=== PATIENT | female | born 1975 | race Caucasian/White ===

== ENCOUNTER 2020-08-19 10:15 | Emergency (ER) | payer OTHER ==
[2020-08-19] MEDS ORDERED: MORPHINE SULFATE 10 MG/ML INJ IV ONE (10:39)
[2020-08-19] MEDS ORDERED: ONDANSETRON HCL INJ/PF 4 MG/2 ML SDV IV ONE (10:39)
[2020-08-19] MEDS ORDERED: NORMAL SALINE 1000 ML 1,000 ML IV ONE (10:40)
--- NOTE | 2020-08-19 10:43 | ER Document Report ---
ED Medical Screen (RME) - General Chief Complaint: Neck Problem Stated Complaint: NECK PAIN,SWELLING Time Seen by Provider: 08/19/20 10:31 TRAVEL OUTSIDE OF THE U.S. IN LAST 30 DAYS: No - HPI Notes: 08/19/20 10:40 44-year-old female presents to the emergency room for a mass to her right side of her neck that started 3 months ago the patient has not had checked out due to lack of insurance. Reports pain has become progressively worse, she now states it is painful to swallow and has a low-grade fever. Patient reports pain is constant, 5 out of 5. Has only tried Tylenol for pain management. Reports last menstrual cycle was 08/12/2020. Patient states she went to the [facility] but they would not see her without a primary care referral, she was told that she could be evaluated in the emergency room. Denies any nausea vomiting or diarrhea, difficulty speaking or breathing, chest pain, shortness of breath, numbness or tingling down arms or legs. Denies any dental pain than her usual, she states she does have "bad teeth" I have greeted and performed a rapid initial assessment of this patient. A comprehensive ED assessment and evaluation of the patient, analysis of test results and completion of the medical decision making process will be conducted by additional ED providers. PHYSICAL EXAMINATION: GENERAL: Well-appearing, well-nourished and in no acute distress. ENT: No right mastoid tenderness on palpation. bilateral TM out any erythema or induration, intact NECK: right neck mass that extends from postauricular to proximal collarbone, approx 11cm x 7 cm. No erythema or induration but slight tenderness to palpation. CV: s1, s2 regular LUNGS: No respiratory distress Musculoskeletal: Normal range of motion NEUROLOGICAL: Normal speech, normal gait. SKIN: Warm, Dry, normal turgor, no rashes or lesions noted. - Related Data Allergies/Adverse Reactions: No Known Allergies Allergy (Verified 08/19/20 10:31) Past Medical History - Past Medical History Cardiac Medical History: Reports: Hx Hypercholesterolemia GI Medical History: Reports: Hx Gastroesophageal Reflux Disease Past Surgical History: Reports: Hx Orthopedic Surgery - right knee - Immunizations Hx Diphtheria, Pertussis, Tetanus Vaccination: Yes Physical Exam - Vital signs Vitals: Temp Pulse Resp BP Pulse Ox 99.2 F 106 H 20 156/94 H 100 08/19/20 10:20 08/19/20 10:20 08/19/20 10:20 08/19/20 10:20 08/19/20 10:20 Course - Vital Signs Vital signs: Temp Pulse Resp BP Pulse Ox 99.2 F 106 H 20 156/94 H 100 08/19/20 10:20 08/19/20 10:20 08/19/20 10:20 08/19/20 10:20 08/19/20 10:20
--- NOTE | 2020-08-19 10:54 | ER Document Report ---
ED Neck/Back Problem - General Chief Complaint: Neck Problem Stated Complaint: NECK PAIN,SWELLING Time Seen by Provider: 08/19/20 10:31 Mode of Arrival: Ambulatory Information source: Patient, Relative - Notes: 08/19/20 10:32 - [id number] : 1975 Patient Age: 44 Pt ambulated to triage room without difficulty. Pt sitting up to chair, Resp even & unlabored. Pt able to speak in complete sentences. Pt reports swelling to right side of neck x 3 months. Pt reports increase difficulty in swallowing. Pt able to maintain airway without difficulty. SARA Hudson present for triage. ED Medical Screen (Tristan Pizarro) - General Chief Complaint: Neck Problem Stated Complaint: NECK PAIN,SWELLING Time Seen by Provider: 08/19/20 10:31 TRAVEL OUTSIDE OF THE U.S. IN LAST 30 DAYS: No - HPI Notes: 08/19/20 10:40 44-year-old female presents to the emergency room for a mass to her right side of her neck that started 3 months ago the patient has not had checked out due to lack of insurance. Reports pain has become progressively worse, she now states it is painful to swallow and has a low-grade fever. Patient reports pain is constant, 5 out of 5. Has only tried Tylenol for pain management. Reports last menstrual cycle was 08/12/2020. Patient states she went to the [facility] but they would not see her without a primary care referral, she was told that she could be evaluated in the emergency room. Denies any nausea vomiting or diarrhea, difficulty speaking or breathing, chest pain, shortness of breath, numbness or tingling down arms or legs. Denies any dental pain than her usual, she states she does have "bad teeth" MY NOTES 44-year-old female arrives with her with chief complaint of awakening in April of this year with pain and swelling to her right lateral neck she denied any trauma or fever chills cough or cold symptoms swallowing problems at that time. Around 1 month later it became painful and she presented herself [facility] She is to her exmilitary man . She works at [employer] in [place] and lately has been very busy because of the holiday schedules working nighttime shift third shift. She denies any family members with lymphoma mononucleosis cytomegalovirus. She reports she did have a boxer who a few years ago had to be put down because of lymphoma. She has 4 other dogs at home that are healthy one boxer 1 Uzbek cagle's to Phylicia. She denies any other family members with any other medical problems. Patient smokes one third of pack of cigarettes daily and denies any alcohol use. She does drink around 20 cans of Mountain Dew per day. She reports lately she has had problems when she chews when she yawns or turns her neck to the right or when she lays on her right neck during sleeping this induces pain in the solid feeling growth in her right lateral neck which is approximately 12 cm length by 12 cm width. TRAVEL OUTSIDE OF THE U.S. IN LAST 30 DAYS: No - HPI Patient complains to provider of: Pain, Neck Onset: Other - x 4-5 months Where: Home Onset: Gradual Timing: Constant, Worse Quality of pain: Achy Severity: Moderate Pain Level: 3 Associated symptoms: Radiation to chest Exacerbated by: Cough/deep breaths, Movement of neck, Sitting position Relieved by: Remaining still Similar symptoms previously: No Recently seen / treated by doctor: No - Related Data Allergies/Adverse Reactions: No Known Allergies Allergy (Verified 08/19/20 10:31) Past Medical History - General Information source: Patient, Relative - Social History Smoking Status: Current Every Day Smoker Cigarette use (# per day): Yes Chew tobacco use (# tins/day): No Smoking Education Provided: Yes Frequency of alcohol use: None Drug Abuse: None Lives with: Family Family History: Reviewed & Not Pertinent Patient has suicidal ideation: No Patient has homicidal ideation: No - Past Medical History Cardiac Medical History: Reports: Hx Hypercholesterolemia GI Medical History: Reports: Hx Gastroesophageal Reflux Disease Past Surgical History: Reports: Hx Orthopedic Surgery - right knee - Immunizations Hx Diphtheria, Pertussis, Tetanus Vaccination: Yes Review of Systems - Review of Systems Constitutional: See HPI, Recent illness EENT: No symptoms reported, Ear pain - Right-sided earache, Throat pain, Difficulty swallowing, Throat swelling Cardiovascular: No symptoms reported Respiratory: No symptoms reported Gastrointestinal: No symptoms reported Genitourinary: No symptoms reported Female Genitourinary: No symptoms reported Musculoskeletal: No symptoms reported Skin: No symptoms reported Hematologic/Lymphatic: No symptoms reported Neurological/Psychological: No symptoms reported -: Yes All other systems reviewed and negative Physical Exam - Vital signs Vitals: Temp Pulse Resp BP Pulse Ox 99.2 F 106 H 20 156/94 H 100 08/19/20 10:20 08/19/20 10:20 08/19/20 10:20 08/19/20 10:20 08/19/20 10:20 Interpretation: Normal - General General appearance: Appears well, Alert - HEENT Head: Normocephalic, Atraumatic Eyes: Normal Pupils: PERRL Nasal: Normal Mouth/Lips: Caries - Dental caries especially of upper teeth and lower molars., Dental fracture Pharynx: Normal Neck: Neck mass - Right lateral neck mass as per HPI with 12 cm length by 12 cm with very tender to palpation and firm to touch. - Respiratory Respiratory status: No respiratory distress Chest status: Nontender Breath sounds: Normal Chest palpation: Normal - Cardiovascular Rhythm: Regular Heart sounds: Normal auscultation Murmur: No - Abdominal Inspection: Normal Distension: No distension Bowel sounds: Normal Tenderness: Nontender Organomegaly: No organomegaly - Rectal Hemorrhoids: Other - Deferred - Genitourinary Bimanuel exam: Other - Deferred - Back Back: Normal, Nontender - Extremities General upper extremity: Normal inspection, Nontender, Normal color, Normal ROM, Normal temperature General lower extremity: Normal inspection, Nontender, Normal color, Normal ROM, Normal temperature, Normal weight bearing. No: Gabby's sign - Neurological Neuro grossly intact: Yes Cognition: Normal Orientation: AAOx4 Morrill Coma Scale Eye Opening: Spontaneous Morrill Coma Scale Verbal: Oriented Max Coma Scale Motor: Obeys Commands Morrill Coma Scale Total: 15 Speech: Normal Motor strength normal: LUE, RUE, LLE, RLE Sensory: Normal - Psychological Associated symptoms: Normal affect, Normal mood - Skin Skin Temperature: Warm Skin Moisture: Dry Skin Color: Normal Course - Vital Signs Vital signs: Temp Pulse Resp BP Pulse Ox 99.2 F 106 H 20 156/94 H 100 08/19/20 10:20 08/19/20 10:20 08/19/20 10:20 08/19/20 10:20 08/19/20 10:20 - Laboratory Result Diagrams: 08/19/20 10:40 08/19/20 10:40 Lab Results Review: Critical Lab Results Reviewed Laboratory results interpreted by me: 12/08/20 12/08/20 10:40 10:40 WBC 10.6 H RDW 14.5 H C-Reactive Protein 59.5 H - Diagnostic Test Radiology Studies Status: Radiology Image Reviewed, Radiology Report Reviewed - I evaluated both the image and the report as per radiology Critical Care Note - Critical Care Note Comments: I discussed this case with Dr. Orozco and also with Dr. Santy Carlson at 1430 and he advises following up in his office tomorrow at 930 I discussed this case with and patient and they appear to understand. For pain I advised Tylenol or [id number] Aleve or Motrin Naprosyn. Discharge - Discharge Clinical Impression: Right lateral neck mass Condition: Stable Disposition: HOME, SELF-CARE Additional Instructions: Follow-up with ENT tomorrow at [address] Santy Carlson at [address]. 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 Also you may follow-up with Dr. Orozco oncologist should ENT desire and you desire as well. Referrals: SANTY CARLSON MD [ACTIVE STAFF] - Follow up as needed
[2020-08-19 11:02] LABS: ABSOLUTE EOSINOPHILS # (AUTO) 0.1 10^3/uL (0.0-0.6); ABSOLUTE LYMPHOCYTES (AUTO) 2.2 10^3/uL (0.5-4.7); ABSOLUTE MONOCYTES (AUTO) 0.7 10^3/uL (0.1-1.4); ABSOLUTE NEUT (AUTO) 7.6 10^3/uL (1.7-8.2); BASOPHILS % (AUTO) 0.4 % (0-2); EOSINOPHILS % (AUTO) 0.5 % (0-6); LYMPHOCYTES % (AUTO) 20.8 % (13-45); MEAN CORPUSCULAR HEMOGLOBIN 31.9 pg (27.0-33.4); MEAN CORPUSCULAR HGB CONC 34.2 g/dL (32.0-36.0); MEAN CORPUSCULAR VOLUME 94 fl (80-97); PLATELET COUNT 396 10^3/uL (150-450); RED BLOOD COUNT 4.06 10^6/uL (3.72-5.28); RED CELL DISTRIBUTION WIDTH 14.5 % (11.5-14.0); SEGMENTED NEUTROPHILS % (AUTO) 71.3 % (42-78); TOTAL CELLS COUNTED % (AUTO) 100 %; WHITE BLOOD COUNT 10.6 10^3/uL (4.0-10.5)
--- NOTE | 2020-08-19 11:39 | RADIOLOGY REPORT (SQ) ---
EXAM DESCRIPTION: CHEST 2 VIEWS IMAGES COMPLETED DATE/TIME: 08/19/2020 11:24 am REASON FOR STUDY: R neck mass [id number], +pain, diff swallowing COMPARISON: None. EXAM PARAMETERS: NUMBER OF VIEWS: two views TECHNIQUE: Digital Frontal and Lateral radiographic views of the chest acquired. RADIATION DOSE: NA LIMITATIONS: none FINDINGS: LUNGS AND PLEURA: No opacities, masses or pneumothorax. No pleural effusion. MEDIASTINUM AND HILAR STRUCTURES: No masses or contour abnormalities. HEART AND VASCULAR STRUCTURES: Heart normal size. No evidence for failure. BONES: No acute findings. HARDWARE: None in the chest. OTHER: No other significant finding. IMPRESSION: NO ACUTE RADIOGRAPHIC FINDING IN THE CHEST. TECHNICAL DOCUMENTATION: JOB ID: [id number] 2010 [employer]- All Rights Reserved Reading location - IP/workstation name: [email or web address]
[2020-08-19 11:40] LABS: ALBUMIN 4.3 g/dL (3.5-5.0); ALKALINE PHOSPHATASE 92 U/L (38-126); ANION GAP 7 (5-19); ASPARTATE AMINO TRANSFERASE 20 U/L (14-36); BILIRUBIN,DIRECT 0.1 mg/dL (0.0-0.4); BILIRUBIN,TOTAL 0.5 mg/dL (0.2-1.3); BLOOD UREA NITROGEN 9 mg/dL (7-20); C-REACTIVE PROTEIN 59.5 mg/L (<10.0); CALCIUM 9.4 mg/dL (8.4-10.2); CARBON DIOXIDE 29 mmol/L (22-30); CHLORIDE 103 mmol/L (98-107); GLUCOSE 87 mg/dL (75-110)
--- NOTE | 2020-08-19 12:36 | RADIOLOGY REPORT (SQ) ---
EXAM DESCRIPTION: CT SOFT TISSUE NECK WITH IMAGES COMPLETED DATE/TIME: 08/19/2020 12:12 pm REASON FOR STUDY: R neck mass [id number], +pain, diff swallowing COMPARISON: None. TECHNIQUE: Post IV contrasted scanning from skull base through lung apices with review of bone, soft tissue and lung windows. Reconstructed coronal and sagittal MPR images reviewed. All images stored on PACS. All CT scanners at this facility use dose modulation, iterative reconstruction, and/or weight based d osing when appropriate to reduce radiation dose to as low as reasonably achievable (ALARA). [facility]: Dose Right [facility]: CareDose [facility]: Dose Right [facility]: Teradose 4D [facility]: [employer] CONTRAST TYPE AND DOSE: contrast/concentration: Isovue 350.00 mmol/ml; Total Contrast Delivered: 75. 0 ml; Total Saline Delivered: 37.8 ml RENAL FUNCTION: BUN 9 creatinine 0.61. RADIATION DOSE: CT Rad equipment meets quality standard of care and radiation dose reduction techniq ues were employed. CTDIvol: 17.1 mGy. DLP: 554 mGy-cm. . LIMITATIONS: None. FINDINGS: SOFT TISSUES: There is a soft tissue mass deep to the sternocleidomastoid muscle and post erior to the vascular bundle. Transverse measurements approximately 3.2 cm and overall length approx imately 5.5 cm. This appears to be predominantly cystic in nature with thin peripheral capsule. SKULL BASE: Intact. MAJOR SALIVARY GLANDS: No solid or cystic masses. No inflammatory changes. LYMPHADENOPATHY: No adenopathy. MUCOSAL MASSES OR ASYMMETRY: No mucosal masses or asymmetry. LARYNX/CORDS: No abnormal findings. VASCULAR STRUCTURES: The major vessels are patent. LUNG APICES: Clear. BONES: Intact. THYROID: Normal size. No masses. PARANASAL SINUSES: Clear. OTHER: No other significant finding. IMPRESSION: LARGE PREDOMINATELY CYSTIC MASS ON THE RIGHT SIDE DESCRIBED. 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 OTHER ETIOLOGIES SUCH ABSCESS OR CYSTIC DEGENERATION OF A NECROTIC LYMPH NODE W OULD PROBABLY BE LESS LIKELY. WOULD CONSIDER FOLLOW-UP WITH MRI FOR MORE COMPLETE EVALUATION. TECHNICAL DOCUMENTATION: JOB ID: [id number] Quality ID # [id number]: Final reports with documentation of one or more dose reduction techniques (e.g., Au tomated exposure control, adjustment of the mA and/or kV according to patient size, use of iterative reconstruction technique) 2010 [employer] All Rights Reserved Reading location - IP/workstation name: [email or web address]
[2020-08-19 15:18] VITALS: BP 148/90
== END 2020-08-19 15:21 | disposition home or self-care (01) ==
LOC: ER 10:15
DX: R22.1 Localized swelling, mass and lump, neck (principal); M54.2 Cervicalgia; R13.10 Dysphagia, unspecified; R50.9 Fever, unspecified; H92.01 Otalgia, right ear
CPT/HCPCS: 99285; 96361; 96374; 96375; 36415; 84702; 85025; 86140; 80053; 71046; 70491; J2270; J2405; J7030

== ENCOUNTER → 2020-08-26 | Day surgery (SDC) | payer BC, OTHER ==
--- NOTE | 2020-08-28 08:39 | RADIOLOGY REPORT (SQ) ---
EXAM DESCRIPTION: FNA BX W/ US GDN 1ST LES IMAGES COMPLETED DATE/TIME: 08/26/2020 11:13 am REASON FOR STUDY: R22.1 LOCALIZED SWELLING, MASS AND LUMP, NECK R22.1 LOCALIZED SWELLING, MASS AND LUMP, NECK COMPARISON: None. TECHNIQUE: The procedure was discussed with the patient and written informed consent obtained. A ti meout was performed to confirm the procedure and patient's identity. The skin of the neck was preppe d and draped in sterile fashion and 1% lidocaine administered for local anesthesia. Under sonographic guidance, 3 core biopsies of right neck mass we re obtained using a 20 gauge biopsy instrument. Hemostasis was obtained with direct manual compression. There were no immediate complications. LIMITATIONS: None. 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 IMPRESSION: ULTRASOUND-GUIDED BIOPSY PERFORMED OF A MASS IN THE RIGHT NECK SOFT TISSUES. COMMENT: Ordering provider was notified by pathology personnel on 08/27/2020 at 1321 hours. Patient medication list reviewed: Yes- Quality ID# [id number]:Eligible professional attests to documenting i n the medical record they obtained, updated, or reviewed the patient's current medications. TECHNICAL DOCUMENTATION: JOB ID: [id number] 2010 [employer]- All Rights Reserved Reading location - IP/workstation name: [email or web address]
== END ==
LOC: RAD 09:57
PROVIDERS: ATTEND Otolaryngology
DX: C96.9 Malignant neoplasm of lymphoid, hematopoietic and related tissue, unspecified (principal); L04.0 Acute lymphadenitis of face, head and neck; R22.1 Localized swelling, mass and lump, neck
CPT/HCPCS: 10005; 88305; 88342

== ENCOUNTER → 2020-09-09 | Outpatient (CLI) | payer BC ==
--- NOTE | 2020-09-10 09:19 | RADIOLOGY REPORT (SQ) ---
EXAM DESCRIPTION: PET CT SKULL/THIGH IMAGES COMPLETED DATE/TIME: 09/09/2020 1:35 pm REASON FOR STUDY: (C76.0)MALIGNANT NEOPLASM OF HEAD, FACE AND NECK C76.0 MALIGNANT NEOPLASM OF HEAD , FACE AND NECK COMPARISON: CT neck dated 08/19/2020 RADIONUCLIDE AND DOSE: 9.92 mCi F18 FDG The route of agent administration: Intravenous FASTING BLOOD SUGAR: 80 mg/dl CONTRAST TYPE AND DOSE: No CT contrast given. TECHNIQUE: Blood glucose level was verified. Above dose of FDG was injected intravenously. 2-D seg mented attenuation correction images were obtained from the base of the skull to the midthighs. Nonc ontrast CT images were obtained for attenuation correction and fusion with emission images. CT image s were performed without oral or intravenous contrast and are not sensitive for parenchymal lesions. A series of overlapping emission PET images were obtained. Images reviewed and manipulated at [facility] work station by the radiologist. Images stored on PACS. LIMITATIONS: None. FINDINGS: HEAD AND NECK: Abnormal uptake in the enlarged node just posterior to the mandible. SUV i s just under 19 consistent with neoplasm. There is peripheral uptake in the necrotic lymph node. Hi ghest SUV is approximately 4. Increased uptake involving the mandible at its apex is nonspecific and may be related to dental disease. CT images are limited through this area due to dental artifact. CHEST: No areas of abnormal metabolic activity in the chest. ABDOMEN AND PELVIS: No areas of abnormal metabolic activity in the abdomen or pelvis. Expected physi ologic activity is present in the genitourinary system and bowel. PROXIMAL LOWER EXTREMITIES: No areas of abnormal metabolic activity in the soft tissues of the lower extremities. BONES: No abnormal metabolic activity in the visualized skeleton. ADDITIONAL CT FINDINGS: No additional significant findings on the noncontrast CT images. OTHER: No other significant findings. IMPRESSION: Abnormal activity is confined to the right aspect of the neck as described. There is in creased uptake in the mandible at its apex this is nonspecific. Direct visualization is recommended. No distant metastasis. TECHNICAL DOCUMENTATION: JOB ID: [id number] Robert Applebaum MD- All Rights Reserved Reading location - IP/workstation name: [email or web address]
== END ==
LOC: RAD 08:41
PROVIDERS: ATTEND Otolaryngology
DX: C76.0 Malignant neoplasm of head, face and neck (principal)
CPT/HCPCS: 78815; A9552

== ENCOUNTER 2020-09-10 05:32 | Day surgery (SDC) | payer BC ==
[~2020-09-10 05:32] MED LIST: CEFAZOLIN 2 GM/D5W RTU 2 GM/50 ML RTUPB IV ONE; CEFAZOLIN 2 GM/D5W RTU 2 GM/50 ML RTUPB IV PRN
[2020-09-10] MEDS ORDERED: LIDOCAINE 2% INJ (20 MG/ML) 20 ML MDV ONE (06:46)
[2020-09-10] MEDS ORDERED: HYDROMORPHONE HCL INJ/PF 2 MG/ML AMPULE ONE (06:47)
[2020-09-10] MEDS ORDERED: DEXAMETHASONE SOD PHOSPHATE INJ 4 MG/1 ML VIAL ONE ×2 (06:48→09:23)
[2020-09-10] MEDS ORDERED: PROPOFOL INJ 200 MG/20 ML VIAL IV ONE (06:48)
[2020-09-10] MEDS ORDERED: FENTANYL CITRATE INJ/PF 100 MCG/2 ML AMPUL ONE (06:48)
[2020-09-10] MEDS ORDERED: MIDAZOLAM 2 MG/2 ML INJ ONE (06:48)
[2020-09-10] MEDS ORDERED: SCOPOLAMINE HYDROBROMIDE 1.5 MG PATCH.TD72 ONE (07:10)
[2020-09-10] MEDS ORDERED: PROMETHAZINE HCL INJ 25 MG/1 ML VIAL ONE (07:10)
[2020-09-10] MEDS ORDERED: EPINEPHRINE INJ/PF 1 MG/1 ML AMPULE ONE (07:11)
[2020-09-10] MEDS ORDERED: OXYMETAZOLINE HCL 0.05% NASAL SPRAY 15 ML BOTTLE ONE ×2 (07:11→07:34)
[2020-09-10] MEDS ORDERED: LIDOCAINE 1%/EPINEPHRINE INJ 20 ML VIAL ONE (07:12)
[2020-09-10] MEDS ORDERED: MINERAL OIL (STERILE) 10 ML VIAL ONE (07:12)
[2020-09-10] MEDS ORDERED: LIDOCAINE 2%/EPINEPHRINE INJ 1.7 ML CARTRIDGE ONE (07:15)
[2020-09-10] MEDS ORDERED: PROMETHAZINE HCL INJ 25 MG/1 ML VIAL IV PRN (07:55)
[2020-09-10] MEDS ORDERED: MEPERIDINE HCL/PF INJ 25 MG/1 ML DISP.SYRIN IV PRN (07:55)
[2020-09-10] MEDS ORDERED: DIPHENHYDRAMINE HCL 50 MG/ML VIAL IV PRN (07:55)
[2020-09-10] MEDS ORDERED: FENTANYL CITRATE INJ/PF 100 MCG/2 ML AMPUL IV PRN ×3 (07:55)
[2020-09-10] MEDS ORDERED: MORPHINE SULFATE 10 MG/ML INJ IV PRN (07:55)
[2020-09-10] MEDS ORDERED: ONDANSETRON HCL INJ/PF 4 MG/2 ML SDV IV PRN ×2 (07:55→09:58)
[2020-09-10] MEDS ORDERED: ONDANSETRON HCL INJ/PF 4 MG/2 ML SDV ONE (09:23)
--- NOTE | 2020-09-10 09:35 | Operative Report ---
[facility] Oper[facility] Report: Date: 10 September 2020 History: 45-year-old female with a right neck mass. FNA biopsy was consistent with a squamous cell carcinoma. Physical exam did not reveal an obvious primary site. PET/CT scan showed increased activity in the base of tongue bilateral. Patient presents today for a panendoscopy with directed biopsies and a tonsillectomy. Informed consent was obtained from the patient. Pre-operative diagnosis: 1. Metastatic squamous cell carcinoma right neck 2. Unknown primary of the head and neck. Post operative diagnosis: Same as above Procedure: 1. Micro direct laryngoscopy 2. Biopsy base of tongue, bilateral 3. Tonsillectomy 4. Rigid nasal endoscopy 5. Biopsy nasopharynx, right Surgeon: Jesus Carlson MD, FACS, [facility] Anesthesia: General via endotracheal intubation Procedure: After receiving informed consent from the patient, she was taken to the operating room and placed supine on the operating table. After successful induction intubation by anesthesia the patient was turned 90 degrees and head drape placed. The head was placed in a sniffing position. A mouth guard was placed over the upper dentition. The Suzi laryngoscope was inserted atraumatically into the laryngeal inlet and the laryngoscope was suspended. Under microscopic visualization the true vocal cords appeared normal without masses. The piriform fossa was visualized on both sides without evidence of a mass. The post cricoid area appeared normal without evidence of mass or lesions. The patient was then taken off suspension the Suzi laryngoscope was withdrawn to expose the base of tongue. A rigid endoscope was inserted through the laryngoscope and multiple biopsies were taken from the right and left side of the base of tongue. An obvious mass was not identified on either side. Hemostasis was obtained with Afrin saturated cottonoids. The laryngoscope was then taken out of suspension and the laryngoscope was withdrawn from the patient atraumatically. The cottonoids were removed. A shoulder roll was placed. A McIvor mouth gag was inserted atraumatically into the oral cavity and opened up. The soft palate was palpated and found to be normal. Red rubber catheters were inserted down each nasal cavity and brought out to elevate the soft palate. Attention was then directed to the tonsils. The right tonsil was grasped with tenaculum and retracted medially. Using Bovie electrocautery the right tonsil was dissected free from its tonsillar fossa . Hemostasis was obtained using suction Bovie electrocautery. A similar procedure was performed on the left side. Both tonsils were removed. The tonsils dissected easily from the tonsillar fossa. No evidence of an intratonsillar mass. The oral pharynx and the oral cavity were irrigated with copious amounts of normal saline, without evidence of bleeding. An orogastric tube was inserted i nto the stomach to aspirate gastric contents. The McIvor mouthgag was then released and reopened, the surgical bed was dry without evidence of bleeding. The McIvor mouth gag along with the red catheters were removed from the patient. The patient was then returned back to anesthesia Attention was then directed to the nasal endoscopy portion of the procedure. A rigid endoscope was inserted through the right nasal cavity where the nasopharynx was visualized. Prominent tissue was noted in the area of the fossa of Rosenmuller on the right side. A biopsy was taken from the site. An Afrin s aturated cottonoid was then placed into the biopsy site. This was removed and hemostasis was obtained. The patient was then given back to anesthesia who successfully extubated the patient without complications. Estimated blood loss: 15 mL Fluids: 1000 mL The patient was then transported to the Post Anesthesia Care Unit in stable condition with spontaneous respiration. No complication.
[2020-09-10] MEDS: FENTANYL CITRATE INJ/PF 100 MCG/2 ML AMPUL ONE ×2 (09:38→09:48)
[2020-09-10] MEDS ORDERED: HYDROCOD/ACETAMIN 7.5-325 MG/15 ML ORAL SOLN UDCUP PO PRN (09:57)
[2020-09-10] MEDS ORDERED: HYDROCOD/ACETAMIN 7.5-325 MG/15 ML ORAL SOLN UDCUP ONE (10:27)
[2020-09-10] MEDS ORDERED: ROCURONIUM BROMIDE INJ 50 MG/5 ML VIAL IV ONE (12:02)
[2020-09-10 12:44] VITALS: BP 167/97
== END 2020-09-10 11:30 | disposition home or self-care (01) ==
LOC: OROUT 05:32
PROVIDERS: ATTEND Otolaryngology
DX: R59.0 Localized enlarged lymph nodes (principal); J35.1 Hypertrophy of tonsils; J34.2 Deviated nasal septum; Z01.812 Encounter for preprocedural laboratory examination; Z20.828 Contact with and (suspected) exposure to other viral communicable diseases; F17.210 Nicotine dependence, cigarettes, uncomplicated
CPT/HCPCS: 31536; 42826; 31237; 81025; 88304 ×2; 88305 ×2; U0003; J2250; J3490 ×3; J1100; J3010; J1170; J2550; J2405; J2704; J0690; C9803; 320; 87635; J0171